=== PATIENT | male | born 1995 ===

== ENCOUNTER 2019-03-05 11:33 | Emergency (ER) | payer SELFPAY ==
[2019-03-05 11:52] VITALS: TEMP 97.8
[2019-03-05] MEDS ORDERED: Multivitamin (MVI) 10 ML, Thiamine 100 MG, Folic Acid 1 MG in Sodium Chloride 0.9% 1,00... IV ONE (11:58)
--- NOTE | 2019-03-05 12:42 | ED PDOC ---
Arrival/HPI - General Chief Complaint: Alcohol Ingestion Time Seen by Provider: 03/05/19 11:48 Historian: Patient - History of Present Illness Narrative History of Present Illness (Text): 03/05/19 12:40 23-year-old male with no significant past medical history presents to the emergency room for alcohol withdrawal, he reports of feeling shaky, headache, with nausea and vomiting. He states that he drinks once a week however for the past 2 days he has been drinking consistently, he drank a total of 15 beers, the last drink was yesterday. Otherwise he reports no chest pain, palpitations, shortness of breath, dizziness, fever, trauma, fall, abdominal pain, has no other complaints. Past Medical History - Psychiatric Hx Substance Use: No Family/Social History Family/Social History: No Known Family HX Smoking Status: Current Some Days Smoker Hx Alcohol Use: Yes Frequency of alcohol use: Few days per week Hx Substance Use: No Allergies/Home Meds Allergies/Adverse Reactions: Allergies No Known Allergies Allergy (Verified 03/05/19 11:51) Review of Systems - Review of Systems Constitutional: absent: Fatigue, Fevers Cardiovascular: absent: Chest Pain, Palpitations Gastrointestinal: Nausea. absent: Abdominal Pain, Vomiting Genitourinary Male: absent: Dysuria, Frequency, Hematuria Musculoskeletal: absent: Arthralgias, Back Pain, Neck Pain Skin: absent: Rash, Skin Lesions Neurological: Headache. absent: Dizziness Physical Exam Vital Signs Temp Pulse Resp BP Pulse Ox 03/05/19 11:52 97.8 F 87 17 139/85 99 Temperature: Afebrile Blood Pressure: Normal Pulse: Regular Respiratory Rate: Normal Appearance: Positive for: Well-Appearing, Non-Toxic, Comfortable Pain Distress: None Mental Status: Positive for: Alert and Oriented X 3 - Systems Exam Head: Present: Atraumatic, Normocephalic Pupils: Present: PERRL Extroacular Muscles: Present: EOMI Conjunctiva: Present: Normal Mouth: Present: Dry Neck: Present: Normal Range of Motion Respiratory/Chest: Present: Clear to Auscultation, Good Air Exchange. No: Respiratory Distress, Accessory Muscle Use Cardiovascular: Present: Regular Rate and Rhythm, Normal S1, S2. No: Murmurs Abdomen: No: Tenderness, Distention, Peritoneal Signs Back: Present: Normal Inspection Upper Extremity: Present: Normal Inspection. No: Cyanosis, Edema Lower Extremity: Present: Normal Inspection. No: Edema Neurological: Present: GCS=15, CN II-XII Intact, Speech Normal, Motor Func Grossly Intact, Normal Sensory Function, Gait Normal, Memory Normal, Other (+fine tremors noted to b/l hands) Skin: Present: Warm, Dry, Normal Color. No: Rashes Psychiatric: Present: Alert, Oriented x 3, Normal Insight, Normal Concentration Medical Decision Making ED Course and Treatment: 03/05/19 12:38 Plan : - IV - Labs - UA - Urine drug screen - Pepcid IV - Zofran IV - Ativan IV - Banana bag IV - Reassess / disposition 03/05/19 14:06 Labs reviewed and wnl. On reevaluation, patient reports improvement of symptoms, denies any headache, dizziness, palpitations, nausea, tremors. On exam, patient remains awake alert and oriented 3 in no acute distress, speaking in full sentences, no slurred speech, no tremors. Neck is supple, repeat neuro exam shows no focal findings, to ambulate with a steady gait. Advised to follow up with the clinic in 1-2 days without fail. Advised to take medication as prescribed. Return to the emergency room at any time for any new or worsening symptoms. Patient states he fully agrees with and understands discharge instructions. States that he agrees with the plan and disposition. Verbalized and repeated discharge instructions and plan. I have given the patient opportunity to ask any additional questions. - Medication Orders Current Medication Orders: Multivitamins/Vitamin C 10 ml/Thiamine HCl 100 mg/ Folic Acid 1 mg/ Sodium Chloride 1,011.2 mls @ 200 mls/hr IV .Q5H4M ONE Stop: 03/05/19 17:01 Discontinued Medications Famotidine (Pepcid) 20 mg IVP STAT STA Stop: 03/05/19 11:57 Last Admin: 03/05/19 12:16 Dose: 20 mg IVP Administration Document 03/05/19 12:16 EQ (Rec: 03/05/19 12:16 EQ [id number]) Charges for Administration # of IVP Administrations 1 Lorazepam (Ativan) 1 mg IVP ONCE ONE; Protocol Stop: 03/05/19 12:02 Last Admin: 03/05/19 12:15 Dose: 1 mg IVP Administration Document 03/05/19 12:15 EQ (Rec: 03/05/19 12:16 EQ [id number]) Charges for Administration # of IVP Administrations 1 Ondansetron HCl (Zofran Inj) 4 mg IVP STAT STA Stop: 03/05/19 11:57 Last Admin: 03/05/19 12:16 Dose: 4 mg IVP Administration Document 03/05/19 12:16 EQ (Rec: 03/05/19 12:16 EQ [id number]) Charges for Administration # of IVP Administrations 1 - PA / TRAIN PLANNER / Resident Statement MD/DO has reviewed & agrees with the documentation as recorded. Disposition/Present on Arrival - Present on Arrival Any Indicators Present on Arrival: No History of DVT/PE: No History of Uncontrolled Diabetes: No Urinary Catheter: No History of Decub. Ulcer: No History Surgical Site Infection Following: None - Disposition Have Diagnosis and Disposition been Completed?: Yes Diagnosis: Alcohol withdrawal Disposition: HOME/ ROUTINE Disposition Time: 14:15 Patient Plan: Discharge Condition: STABLE Discharge Instructions (ExitCare): Alcohol Withdrawal, Alcohol Abuse and Alcoholism (DC) Print Language: KOREAN Additional Instructions: Thank you for letting us take care of you today. You were treated for alcohol withdrawal. The emergency medical care you received today was directed at your acute symptoms. If you were prescribed any medication, please fill it and take as directed. It may take several days for your symptoms to resolve. Return to the Emergency Department if your symptoms worsen, do not improve, or if you have any other problems. Please call one of the physicians/clinics you have been referred to that are listed on the Patient Visit Information form that is included in your discharge packet. Bring any paperwork you were given at discharge with you along with any medications you are taking to your follow up visit. Our treatment cannot replace ongoing medical care by a primary care provider (PCP) outside of the emergency department. Thank you for allowing the [email or web address] team to be part of your care today. Prescriptions: chlordiazePOXIDE [Chlordiazepoxide HCl] 25 mg PO TID PRN #12 cap PRN Reason: Other Referrals: [facility] [place] - Follow up with primary Forms: needmade (Paraguayan), WORK NOTE
[2019-03-05 12:47] LABS: BASO # 0.04 K/mm3 (0.0-2.0); BASO % 0.4 % (0.0-3.0); EOS # 0.2 (0.0-0.7); EOS % 1.7 % (1.5-5.0); HEMOGLOBIN 15.5 g/dL (14.0-18.0); LYMPH # 2.1 (1.2-3.4); LYMPH % 22.8 % (22.0-35.0); MEAN CELL VOLUME 92.6 fl (80.0-105.0); MEAN CORPUSCULAR HEMOGLOBIN 31.9 pg (25.0-35.0); MEAN CORPUSCULAR HGB CONC 34.4 g/dl (31.0-37.0); MEAN PLATELET VOLUME 9.7 fl (7.0-11.0); MONO # 0.4 (0.1-0.6); MONO % 3.9 % (1.0-6.0); RBC 4.86 10^6/uL (3.5-6.1); RED CELL DISTRIBUTION WIDTH 12.6 % (11.5-14.5)
[2019-03-05 12:53] LABS: URINE BILIRUBIN NEGATIVE (NEGATIVE); URINE BLOOD NEGATIVE (NEGATIVE); URINE GLUCOSE (UA) NEGATIVE (NEGATIVE); URINE LEUKOCYTE ESTERASE NEGATIVE Leu/uL (NEGATIVE); URINE PROTEIN NEGATIVE mg/dL (<30 mg/dL); URINE UROBILINOGEN 0.2 E.U./dL (<1 E.U./dL)
[2019-03-05 12:54] LABS: INR 1.02; PARTIAL THROMBOPLASTIN TIME 30.8 Seconds (26.9-38.3); PROTHROMBIN TIME 11.5 SECONDS (9.4-12.5); URINE APPEARANCE CLEAR (CLEAR); URINE COLOR YELLOW (YELLOW)
[2019-03-05 12:57] LABS: ALB/GLOB RATIO 1.4 (1.1-1.8); ALBUMIN 4.7 g/dL (3.0-4.8); ALT/SGPT 39 U/L (7-56); AST/SGOT 44 U/L (17-59); BLOOD UREA NITROGEN 11 mg/dL (7-21); CALCIUM 9.1 mg/dL (8.4-10.5); GFR NON-AFRICAN AMERICAN > 60; LIPASE 53 U/L (23-300)
[2019-03-05 13:24] LABS: BARBITURATES, UR NEGATIVE (NEGATIVE); BENZODIAZEPINES, UR NEGATIVE (NEGATIVE); OPIATES, UR NEGATIVE (NEGATIVE); PHENCYCLIDINE, UR NEGATIVE (NEGATIVE)
[2019-03-05 15:52] VITALS: BP 128/86; PULSE 82; RESP 18; O2SAT 100
== END 2019-03-05 16:06 | disposition home or self-care (01) ==
LOC: ED 11:33
DX: F10.239 Alcohol dependence with withdrawal, unspecified (principal)
CPT/HCPCS: 80053; 81003; 83690; 83735; 85025; 85610; 85730; 96374; 96375; 99283; G0480; J2060; J2405; J3411; J7030

== ENCOUNTER 2019-04-21 18:02 | Observation (INO) | payer SELFPAY ==
[2019-04-21 18:45] VITALS: BMI 24.4
[2019-04-21] MEDS ORDERED: Sodium Chloride 0.9% 1,000 ML IV STA ×2 (18:56→20:11)
[2019-04-21 19:19] LABS: BASO # 0.02 K/mm3 (0.0-2.0); BASO % 0.2 % (0.0-3.0); EOS % 0.2 % (1.5-5.0); HEMOGLOBIN 15.8 g/dL (14.0-18.0); LYMPH % 20.6 % (22.0-35.0); MEAN CORPUSCULAR HEMOGLOBIN 31.5 pg (25.0-35.0); MEAN CORPUSCULAR HGB CONC 34.6 g/dl (31.0-37.0); MEAN PLATELET VOLUME 9.3 fl (7.0-11.0); MONO # 0.6 (0.1-0.6); MONO % 6.7 % (1.0-6.0); RBC 5.01 10^6/uL (3.5-6.1); RED CELL DISTRIBUTION WIDTH 12.8 % (11.5-14.5); WHITE BLOOD COUNT 9.6 10^3/uL (4.5-11.0)
[2019-04-21 19:30] LABS: ALB/GLOB RATIO 1.4 (1.1-1.8); ALBUMIN 4.7 g/dL (3.0-4.8); ALT/SGPT 62 U/L (7-56); AST/SGOT 87 U/L (17-59); BLOOD UREA NITROGEN 8 mg/dL (7-21); GFR NON-AFRICAN AMERICAN > 60; LIPASE 95 U/L (23-300)
--- NOTE | 2019-04-21 19:34 | ED PDOC ---
Arrival/HPI <Alvino Pulido - Last Filed: 04/21/19 22:56> - General Historian: Patient - History of Present Illness Narrative History of Present Illness (Text): 04/21/19 20:29 23 y/o male with PMH of alcohol abuse presents to the ED c/o headache, shakiness, lightheadedness and nausea x 1 day. Pt has been binge drinking alcohol for the last 4 days. Last drink 8am this morning. No history of alcohol related seizures. Denies fever, chills, vomiting, chest pain, SOB, abdominal pain, back pain, diarrhea, seizures, hallucinations, fall/trauma, or any other associated symptoms. <Iesha Krueger - Last Filed: 04/22/19 04:26> - General Chief Complaint: Substance Abuse Time Seen by Provider: 04/21/19 18:15 Past Medical History - Provider Review Nursing Documentation Reviewed: Yes Primary Care Provider: Non [facility] Provider, - Psychiatric Hx Substance Use: No <Iesha Krueger - Last Filed: 04/22/19 04:26> Family/Social History - Physician Review Nursing Documentation Reviewed: Yes Family/Social History: No Known Family HX Smoking Status: Current Some Days Smoker Hx Alcohol Use: Yes Frequency of alcohol use: Few days per week Hx Substance Use: No <Iesha Krueger - Last Filed: 04/22/19 04:26> Allergies/Home Meds <Alvino Pulido - Last Filed: 04/21/19 22:56> <Iesha Krueger - Last Filed: 04/22/19 04:26> Allergies/Adverse Reactions: Allergies No Known Allergies Allergy (Verified 04/21/19 18:50) Home Medications: Home Meds Medication Instructions Recorded Confirmed No Known Home Med 04/21/19 04/21/19 Review of Systems - Review of Systems Constitutional: Normal. absent: Fevers Eyes: Normal. absent: Vision Changes, Photophobia ENT: Normal. absent: Sore Throat, Epistaxis Respiratory: Normal. absent: SOB, Cough Cardiovascular: Normal. absent: Chest Pain, Palpitations, Syncope Gastrointestinal: Nausea. absent: Abdominal Pain, Stool Changes, Vomiting, Appetite Changes Genitourinary Male: Normal. absent: Dysuria, Frequency Musculoskeletal: Normal. absent: Back Pain, Neck Pain Skin: Normal. absent: Rash Neurological: Headache, Dizziness. absent: Focal Weakness, Gait Changes, Speech Changes, Disequilibrium, Seizure Psychiatric: Anxiety <Iesha Krueger - Last Filed: 04/22/19 04:26> Physical Exam Vital Signs Temp Pulse Resp BP Pulse Ox 04/21/19 22:03 102 H 13 158/97 H 100 04/21/19 18:45 98.7 F 110 H 20 135/84 97 <Alvino Pulido - Last Filed: 04/21/19 22:56> Vital Signs Reviewed: Yes Vital Signs Temp Pulse Resp BP Pulse Ox 04/21/19 18:45 98.7 F 110 H 20 135/84 97 Temperature: Afebrile Blood Pressure: Normal Pulse: Tachycardic Respiratory Rate: Normal Appearance: Positive for: Non-Toxic, Uncomfortable, Other (Diaphoretic) Pain Distress: None Mental Status: Positive for: Alert and Oriented X 3 - Systems Exam Head: Present: Atraumatic, Normocephalic Pupils: Present: PERRL Extroacular Muscles: Present: EOMI Conjunctiva: Present: Normal Mouth: Present: Dry Neck: Present: Normal Range of Motion. No: Meningeal Signs Respiratory/Chest: Present: Clear to Auscultation, Good Air Exchange. No: Respiratory Distress, Accessory Muscle Use Cardiovascular: Present: Normal S1, S2, Peripheal Pulses Present, Tachycardic Abdomen: Present: Normal Bowel Sounds. No: Tenderness Back: Present: Normal Inspection. No: CVA Tenderness Upper Extremity: Present: Normal Inspection, Normal ROM, NORMAL PULSES, Neurovascularly Intact, Capillary Refill < 2s. No: Cyanosis, Edema, Temperature Abnormalties Lower Extremity: Present: Normal Inspection, NORMAL PULSES, Normal ROM, Neurovascularly Intact, Capillary Refill < 2 s. No: Edema, Temperature Abnormalties Neurological: Present: GCS=15, Speech Normal, Motor Func Grossly Intact, Normal Sensory Function, Gait Normal, Other (Tremors to bilateral hands, mild) Skin: Present: Warm, Dry, Normal Color. No: Rashes Psychiatric: Present: Alert, Oriented x 3, Normal Insight, Normal Concentration, Anxious <Iesha Krueger - Last Filed: 04/22/19 04:26> Medical Decision Making - Lab Interpretations Lab Results: Total Bilirubin 0.3 mg/dL (0.2-1.3) 04/21/19 19:10 AST 87 U/L (17-59) H D 04/21/19 19:10 ALT 62 U/L (7-56) H 04/21/19 19:10 Alkaline Phosphatase 71 U/L (38-126) 04/21/19 19:10 Total Protein 7.9 g/dL (5.8-8.3) 04/21/19 19:10 Albumin 4.7 g/dL (3.0-4.8) 04/21/19 19:10 Globulin 3.2 gm/dL 04/21/19 19:10 Albumin/Globulin Ratio 1.4 (1.1-1.8) 04/21/19 19:10 Lipase 95 U/L (23-300) 04/21/19 19:10 Urine Color Colorless (YELLOW) 04/21/19 19:41 Urine Appearance Clear (CLEAR) 04/21/19 19:41 Urine pH 7.0 (4.7-8.0) 04/21/19 19:41 Ur Specific [place] <= 1.005 (1.005-1.035) 04/21/19 19:41 Urine Protein Negative mg/dL (<30 mg/dL) 04/21/19 19:41 Urine Glucose (UA) Negative mg/dL (NEGATIVE) 04/21/19 19:41 Urine Ketones Negative mg/dL (NEGATIVE) 04/21/19 19:41 Urine Blood Negative (NEGATIVE) 04/21/19 19:41 Urine Nitrate Negative (NEGATIVE) 04/21/19 19:41 Urine Bilirubin Negative (NEGATIVE) 04/21/19 19:41 Urine Urobilinogen 0.2 E.U./dL (<1 E.U./dL) 04/21/19 19:41 Ur Leukocyte Esterase Negative Aurelia/uL (NEGATIVE) 04/21/19 19:41 - RAD Interpretation Radiology Orders: 04/21/19 18:49 CHEST PORTABLE [RAD] Stat - Medication Orders Current Medication Orders: Folic Acid (Folic Acid) 1 mg PO DAILY SHALOM Multivitamins/Vitamin C 10 ml/Thiamine HCl 100 mg/ Folic Acid 1 mg/ Sodium Chloride 1,011.2 mls @ 100 mls/hr IV .Q10H7M ONE Stop: 04/22/19 06:29 Last Admin: 04/21/19 20:58 Dose: 100 mls/hr eMAR Start Stop Document 04/21/19 20:58 EB (Rec: 04/21/19 20:59 EB [id number]) Intravenous Solution Start Date 04/21/19 Start Time 20:58 Lorazepam (Ativan) 2 mg IVP Q6H SHALOM; Protocol Lorazepam (Ativan) 2 mg IVP Q2 PRN; Protocol PRN Reason: Symptoms of alcohol withdrawl Multivitamins/Minerals (Therapeutic-M Tab) 1 tab PO 0800 SHALOM Ondansetron HCl (Zofran Inj) 4 mg IVP Q4H PRN PRN Reason: Nausea/Vomiting Pantoprazole Sodium (Protonix Ec Tab) 40 mg PO 0600 SHALOM Thiamine HCl (Vitamin B1 Tab) 100 mg PO DAILY SHALOM Discontinued Medications Sodium Chloride (Sodium Chloride 0.9%) 1,000 mls @ 999 mls/hr IV .Q1H1M STA Stop: 04/21/19 19:56 Last Admin: 04/21/19 19:22 Dose: 999 mls/hr eMAR Start Stop Document 04/21/19 19:22 SS (Rec: 04/21/19 19:22 SS [id number]) Intravenous Solution Start Date 04/21/19 Start Time 19:22 End Date 04/21/19 End time 20:22 Total Infusion Time 60 Magnesium Sulfate (Magnesium Sulfate 2 Gm/50 Ml Water) 2 gm in 50 mls @ 50 mls/hr IVPB ONCE ONE Stop: 04/21/19 20:34 Last Admin: 04/21/19 20:03 Dose: 50 mls/hr eMAR Start Stop Document 04/21/19 20:03 EB (Rec: 04/21/19 20:04 EB [facility]-) Intravenous Solution Start Date 04/21/19 Start Time 20:03 Lorazepam (Ativan) 1 mg IVP ONCE ONE Stop: 04/21/19 18:50 Last Admin: 04/21/19 19:22 Dose: 1 mg IVP Administration Document 04/21/19 19:22 SS (Rec: 04/21/19 19:23 SS [id number]) Charges for Administration # of IVP Administrations 1 Lorazepam (Ativan) 1 mg IVP ONCE ONE; Protocol Stop: 04/21/19 19:33 Last Admin: 05/24/19 20:03 Dose: 1 mg IVP Administration Document 04/21/19 20:03 EB (Rec: 04/21/19 20:03 EB [facility] Charges for Administration # of IVP Administrations 1 Thiamine HCl (Vitamin B1 Inj) 100 mg IM STAT STA Stop: 04/21/19 20:06 Last Admin: 04/21/19 21:09 Dose: 100 mg IM Administration Charges Document 04/21/19 21:09 EB (Rec: 04/21/19 21:09 EB [facility]) Injection Site MAR Injection Site Left Deltoid Charges for Administration # of IM Administrations 1 <AshokAlvino - Last Filed: 04/21/19 22:56> ED Course and Treatment: Initial Plan: * Labs * UA, UDS * EKG * CXR * IVF * Ativan 20:00 [facility] for Alcohol Withdrawal RESULT SUMMARY: 10 points Patients with scores >9 may require medication for withdrawal INPUTS: Nausea/vomiting > 1 = Mild nausea and no vomiting Tremor > 2 = (More severe symptoms) Paroxysmal sweats > 4 = Beads of sweat obvious on forehead Anxiety > 1 = Mildly anxious Agitation > 0 = Normal activity Tactile disturbances > 0 = None Auditory disturbances > 0 = Not present Visual disturbances > 0 = Not present Headache/fullness in head > 2 = Mild Orientation/clouding of sensorium > 0 = Oriented, can do serial additions 20:13 On re-evaluation, patient reports improvement in symptoms. Continues to be tachycardic. Bloodwork reviewed. Mg low, LFTs mildly elevated, otherwise unremarkable. Another 1mg Ativan ordered for continued tremors. Magnesium and thiamine ordered. Another liter of fluid ordered. 20:[address] Benton who accepted patient for inpatient observation on telemetry with diagnosis of alcohol withdrawal. Pt continues to be tachycardic. Banana bag ordered per admitting team. Pt updated with change in disposition. vice president diversity notified. - Lab Interpretations Lab Results: Total Bilirubin 0.3 mg/dL (0.2-1.3) 04/21/19 19:10 AST 87 U/L (17-59) H D 04/21/19 19:10 ALT 62 U/L (7-56) H 04/21/19 19:10 Alkaline Phosphatase 71 U/L (38-126) 04/21/19 19:10 Total Protein 7.9 g/dL (5.8-8.3) 04/21/19 19:10 Albumin 4.7 g/dL (3.0-4.8) 04/21/19 19:10 Globulin 3.2 gm/dL 04/21/19 19:10 Albumin/Globulin Ratio 1.4 (1.1-1.8) 04/21/19 19:10 Lipase 95 U/L (23-300) 04/21/19 19:10 04/21/19 19:10 04/21/19 19:10 Lab Results 04/21/19 19:41: Urine Color Colorless, Urine Appearance Clear, Urine pH 7.0, Ur Specific [place] <= 1.005, Urine Protein Negative, Urine Glucose (UA) Negative, Urine Ketones Negative, Urine Blood Negative, Urine Nitrate Negative, Urine Bilirubin Negative, Urine Urobilinogen 0.2, Ur Leukocyte Esterase Negative 04/21/19 19:15: Alcohol, Quantitative 65 H 04/21/19 19:10: Sodium 139, Potassium 4.2, Chloride 102, Carbon Dioxide 23, Anion Gap 18, BUN 8, Creatinine 0.9, Est GFR ( Amer) > 60, Est GFR (Non- Af Amer) > 60, Random Glucose 109, Calcium 9.0, Phosphorus 3.5, Magnesium 1.6 L, Total Bilirubin 0.3, AST 87 H D, ALT 62 H, Alkaline Phosphatase 71, Total Protein 7.9, Albumin 4.7, Globulin 3.2, Albumin/Globulin Ratio 1.4, Lipase 95 04/21/19 19:10: WBC 9.6, RBC 5.01, Hgb 15.8, Hct 45.6, MCV 91.0, MCH 31.5, MCHC 34.6, RDW 12.8, Plt Count 293, MPV 9.3, Neut % (Auto) 72.3 H, Lymph % (Auto) 20.6 L, Rogers % (Auto) 6.7 H, Eos % (Auto) 0.2 L, Baso % (Auto) 0.2, Lymph # (Auto) 2.0, Rogers # (Auto) 0.6, Eos # (Auto) 0.0, Baso # (Auto) 0.02, Absolute Neuts (auto) 6.95 H I have reviewed the lab results: Yes - RAD Interpretation Radiology Orders: 04/21/19 18:49 CHEST PORTABLE [RAD] Stat - EKG Interpretation EKG Interpretation (Text): Rate 107; Sinus tachycardia; Normal axis; Normal intervals; No STEMI or other signs of acute ischemia. Interpreted by ED Physician: Yes Type: 12 lead EKG - Medication Orders Current Medication Orders: Sodium Chloride (Sodium Chloride 0.9%) 1,000 mls @ 999 mls/hr IV .Q1H1M STA Stop: 04/21/19 19:56 Last Admin: 04/21/19 19:22 Dose: 999 mls/hr eMAR Start Stop Document 04/21/19 19:22 SS (Rec: 04/21/19 19:22 SS [id number]) Intravenous Solution Start Date 04/21/19 Start Time 19:22 End Date 04/21/19 End time 20:22 Total Infusion Time 60 Lorazepam (Ativan) 1 mg IVP ONCE ONE; Protocol Stop: 04/21/19 19:33 Discontinued Medications Lorazepam (Ativan) 1 mg IVP ONCE ONE Stop: 04/21/19 18:50 Last Admin: 04/21/19 19:22 Dose: 1 mg IVP Administration Document 04/21/19 19:22 SS (Rec: 04/21/19 19:23 SS [id number]) Charges for Administration # of IVP Administrations 1 <Iesha Krueger - Last Filed: 04/22/19 04:26> - PA / TRUCK SPOTTER / Resident Statement JACOB has reviewed & agrees with the documentation as recorded. / has examined the patient and agrees with the treatment plan. <Alvino Pulido - Last Filed: 04/21/19 22:56> Disposition/Present on Arrival <Alvino Pulido - Last Filed: 04/21/19 22:56> - Present on Arrival Any Indicators Present on Arrival: No History of DVT/PE: No History of Uncontrolled Diabetes: No Urinary Catheter: No History of Decub. Ulcer: No History Surgical Site Infection Following: None - Disposition Have Diagnosis and Disposition been Completed?: Yes Disposition Time: 20:15 <Iesha Krueger - Last Filed: 04/22/19 04:26> - Disposition Diagnosis: Alcohol withdrawal Disposition: HOSPITALIZED Patient Problems: Current Active Problems Problem Status Onset Alcohol withdrawal Acute Condition: STABLE
[2019-04-21] MEDS ORDERED: Magnesium Sulfate 2 gm/50 ml 2 GM/50 ML BAG IVPB ONE (19:35)
[2019-04-21 19:56] LABS: URINE BILIRUBIN NEGATIVE (NEGATIVE); URINE BLOOD NEGATIVE (NEGATIVE); URINE GLUCOSE (UA) NEGATIVE (NEGATIVE); URINE LEUKOCYTE ESTERASE NEGATIVE Leu/uL (NEGATIVE); URINE PROTEIN NEGATIVE mg/dL (<30 mg/dL); URINE UROBILINOGEN 0.2 E.U./dL (<1 E.U./dL)
[2019-04-21 19:59] LABS: URINE APPEARANCE CLEAR (CLEAR); URINE COLOR COLORLESS (YELLOW)
[2019-04-21] MEDS ORDERED: Thiamine 100 mg/ml Inj IM STA (20:05)
[2019-04-21 20:10] LABS: BARBITURATES, UR NEGATIVE (NEGATIVE); BENZODIAZEPINES, UR NEGATIVE (NEGATIVE); OPIATES, UR NEGATIVE (NEGATIVE); PHENCYCLIDINE, UR NEGATIVE (NEGATIVE)
[2019-04-21] MEDS ORDERED: Multivitamin (MVI) 10 ML, Thiamine 100 MG, Folic Acid 1 MG in Sodium Chloride 0.9% 1,00... IV ONE (20:23)
--- NOTE | 2019-04-21 20:55 | CP.PCM.HP ---
<Quincy Adhikari - Last Filed: 04/22/19 01:53> History of Present Illness - History of Present Illness History of Present Illness: Quincy Adhikari H&P for Dr. Benton cc: "headache, shaking, lightheadedness, nausea s/p binge drinking" Patient is a 23 y/o male with PMHx of alcohol abuse presents to the ED c/o headache, shaking, lightheadedness and nausea x 1 day duration after binge drinking. He has been consistently drinking alcohol for the last 4 days. Patient says he last drank at 8am in the morning. He typically drinks 15 beers a day. He says that after drinking he will usually get shakes and have some visual or auditory hallucinations. He denies any history of seizures. Currently he denies fever, chills, vomiting, chest pain, SOB, abdominal pain, back pain, diarrhea, seizures, visual/auditory/tactile hallucinations. Previous admission to ED was on 03/05/19 for similar presentation. A full 12 point ROS was conducted and unremarkable except as stated above. PMD: none PMHx: alcohol abuse PSHx: none Meds: none Allergies: NKDA FamHx: non-contributory SocialHx: active smoker (2-3 cigarettes x2 years). Alcohol abuse, 15 beers/day. Denies illicit drug use. Present on Admission - Present on Admission Any Indicators Present on Admission: No Review of Systems - Review of Systems All systems: reviewed and no additional remarkable complaints except (as per HPI) Past Patient History - Past Social History Smoking Status: Current Some Days Smoker - PSYCHIATRIC Hx Substance Use: No - SURGICAL HISTORY Hx Surgeries: No Meds Allergies/Adverse Reactions: Allergies Allergy/AdvReac Type Severity Reaction Status Date / Time No Known Allergies Allergy Verified 04/21/19 18:50 Physical Exam - Constitutional Appears: No Acute Distress - Head Exam Head Exam: ATRAUMATIC, NORMAL INSPECTION, NORMOCEPHALIC - Eye Exam Eye Exam: EOMI, Normal appearance Pupil Exam: NORMAL ACCOMODATION - ENT Exam ENT Exam: Mucous Membranes Moist Additional comments: Mild tongue fasiculations - Respiratory Exam Respiratory Exam: Clear to Auscultation Bilateral. absent: Chest Wall Tenderness, Rales, Rhonchi, Wheezes, Respiratory Distress - Cardiovascular Exam Cardiovascular Exam: Tachycardia, +S1, +S2 - GI/Abdominal Exam GI & Abdominal Exam: Normal Bowel Sounds, Soft. absent: Guarding, Rebound, Rigid, Tenderness - Extremities Exam Extremities exam: Positive for: normal capillary refill, normal inspection, pedal pulses present - Back Exam Back exam: NORMAL INSPECTION - Neurological Exam Neurological exam: Alert, CN II-XII Intact, Oriented x3, Reflexes Normal - Psychiatric Exam Psychiatric exam: Normal Affect, Normal Mood - Skin Skin Exam: Dry, Intact, Normal Color, Warm Results - Vital Signs Recent Vital Signs: Last Vital Signs Temp 98.7 F 04/21/19 18:45 Pulse 110 H 04/21/19 18:45 Resp 20 04/21/19 18:45 BP 135/84 04/21/19 18:45 Pulse Ox 97 04/21/19 18:45 - Labs Result Diagrams: 04/21/19 19:10 04/21/19 19:10 Labs: Laboratory Results - last 24 hr 04/21/19 04/21/19 04/21/19 19:10 19:10 19:15 WBC 9.6 RBC 5.01 Hgb 15.8 Hct 45.6 MCV 91.0 MCH 31.5 MCHC 34.6 RDW 12.8 Plt Count 293 MPV 9.3 Neut % (Auto) 72.3 H Lymph % (Auto) 20.6 L [place] % (Auto) 6.7 H Eos % (Auto) 0.2 L Baso % (Auto) 0.2 Lymph # (Auto) 2.0 [place] # (Auto) 0.6 Eos # (Auto) 0.0 Baso # (Auto) 0.02 Absolute Neuts (auto) 6.95 H Sodium 139 Potassium 4.2 Chloride 102 Carbon Dioxide 23 Anion Gap 18 BUN 8 Creatinine 0.9 Est GFR ( Amer) > 60 Est GFR (Non-Af Amer) > 60 Random Glucose 109 Calcium 9.0 Phosphorus 3.5 Magnesium 1.6 L Total Bilirubin 0.3 AST 87 H D ALT 62 H Alkaline Phosphatase 71 Total Protein 7.9 Albumin 4.7 Globulin 3.2 Albumin/Globulin Ratio 1.4 Lipase 95 Urine Color Urine Appearance Urine pH Ur Specific [place] Urine Protein Urine Glucose (UA) Urine Ketones Urine Blood Urine Nitrate Urine Bilirubin Urine Urobilinogen Ur Leukocyte Esterase Urine Opiates Screen Urine Methadone Screen Ur Barbiturates Screen Ur Phencyclidine Scrn Ur Amphetamines Screen U Benzodiazepines Scrn U Oth Cocaine Metabols U Cannabinoids Screen Alcohol, Quantitative 65 H 04/21/19 04/21/19 19:41 19:41 WBC RBC Hgb Hct MCV MCH MCHC RDW Plt Count MPV Neut % (Auto) Lymph % (Auto) [place] % (Auto) Eos % (Auto) Baso % (Auto) Lymph # (Auto) [place] # (Auto) Eos # (Auto) Baso # (Auto) Absolute Neuts (auto) Sodium Potassium Chloride Carbon Dioxide Anion Gap BUN Creatinine Est GFR ( Amer) Est GFR (Non-Af Amer) Random Glucose Calcium Phosphorus Magnesium Total Bilirubin AST ALT Alkaline Phosphatase Total Protein Albumin Globulin Albumin/Globulin Ratio Lipase Urine Color Colorless Urine Appearance Clear Urine pH 7.0 Ur Specific [place] <= 1.005 Urine Protein Negative Urine Glucose (UA) Negative Urine Ketones Negative Urine Blood Negative Urine Nitrate Negative Urine Bilirubin Negative Urine Urobilinogen 0.2 Ur Leukocyte Esterase Negative Urine Opiates Screen Negative Urine Methadone Screen Negative Ur Barbiturates Screen Negative Ur Phencyclidine Scrn Negative Ur Amphetamines Screen Negative U Benzodiazepines Scrn Negative U Oth Cocaine Metabols Negative U Cannabinoids Screen Negative Alcohol, Quantitative Assessment & Plan - Assessment and Plan (Free Text) Assessment: Patient is a 23 y/o male with PMHx of alcohol abuse presents to the ED c/o headache, shaking, lightheadedness and nausea x 1 day duration after binge drinking. Plan: EtOH Intoxication/Withdrawal - EtOH level 65 - [facility] protocol - Banana bag - Ativan 2mg IVP q6 scheduled - Ativan 2mg IVP q2 prn - Zofran prn for nausea - Multivitamin/folic acid/thiamine - seizure/fall/aspiration precautions - UDS negative - Transaminitis 2/2 EtOH abuse - EKG: sinus tachy, HR 107 - CXR: no active disease - CIWA score 10 in ED - Counseled extensively on alcohol cessation ppx: -scd -ptx Diet: Regular Dispo: Monitor patient on tele for EtOH withdrawal. Case was discussed and reviewed with Attending Physician, Dr. Benton <Mell Benton - Last Filed: 04/22/19 02:01> Results - Vital Signs Recent Vital Signs: Last Vital Signs Temp 98.2 F 04/22/19 00:00 Pulse 98 H 04/22/19 00:00 Resp 18 04/22/19 00:00 BP 137/82 04/22/19 00:00 Pulse Ox 99 04/22/19 00:00 - Labs Result Diagrams: 04/21/19 19:10 04/21/19 19:10 Labs: Laboratory Results - last 24 hr 04/21/19 04/21/19 04/21/19 19:10 19:10 19:15 WBC 9.6 RBC 5.01 Hgb 15.8 Hct 45.6 MCV 91.0 MCH 31.5 MCHC 34.6 RDW 12.8 Plt Count 293 MPV 9.3 Neut % (Auto) 72.3 H Lymph % (Auto) 20.6 L [place] % (Auto) 6.7 H Eos % (Auto) 0.2 L Baso % (Auto) 0.2 Lymph # (Auto) 2.0 [place] # (Auto) 0.6 Eos # (Auto) 0.0 Baso # (Auto) 0.02 Absolute Neuts (auto) 6.95 H Sodium 139 Potassium 4.2 Chloride 102 Carbon Dioxide 23 Anion Gap 18 BUN 8 Creatinine 0.9 Est GFR ( Amer) > 60 Est GFR (Non-Af Amer) > 60 Random Glucose 109 Calcium 9.0 Phosphorus 3.5 Magnesium 1.6 L Total Bilirubin 0.3 AST 87 H D ALT 62 H Alkaline Phosphatase 71 Total Protein 7.9 Albumin 4.7 Globulin 3.2 Albumin/Globulin Ratio 1.4 Lipase 95 Urine Color Urine Appearance Urine pH Ur Specific [place] Urine Protein Urine Glucose (UA) Urine Ketones Urine Blood Urine Nitrate Urine Bilirubin Urine Urobilinogen Ur Leukocyte Esterase Urine Opiates Screen Urine Methadone Screen Ur Barbiturates Screen Ur Phencyclidine Scrn Ur Amphetamines Screen U Benzodiazepines Scrn U Oth Cocaine Metabols U Cannabinoids Screen Alcohol, Quantitative 65 H 04/21/19 04/21/19 19:41 19:41 WBC RBC Hgb Hct MCV MCH MCHC RDW Plt Count MPV Neut % (Auto) Lymph % (Auto) [place] % (Auto) Eos % (Auto) Baso % (Auto) Lymph # (Auto) [place] # (Auto) Eos # (Auto) Baso # (Auto) Absolute Neuts (auto) Sodium Potassium Chloride Carbon Dioxide Anion Gap BUN Creatinine Est GFR ( Amer) Est GFR (Non-Af Amer) Random Glucose Calcium Phosphorus Magnesium Total Bilirubin AST ALT Alkaline Phosphatase Total Protein Albumin Globulin Albumin/Globulin Ratio Lipase Urine Color Colorless Urine Appearance Clear Urine pH 7.0 Ur Specific [place] <= 1.005 Urine Protein Negative Urine Glucose (UA) Negative Urine Ketones Negative Urine Blood Negative Urine Nitrate Negative Urine Bilirubin Negative Urine Urobilinogen 0.2 Ur Leukocyte Esterase Negative Urine Opiates Screen Negative Urine Methadone Screen Negative Ur Barbiturates Screen Negative Ur Phencyclidine Scrn Negative Ur Amphetamines Screen Negative U Benzodiazepines Scrn Negative U Oth Cocaine Metabols Negative U Cannabinoids Screen Negative Alcohol, Quantitative Attending/Attestation - Attestation I have personally seen and examined this patient.: Yes I have fully participated in the care of the patient.: Yes I have reviewed all pertinent clinical information: Yes Notes (Text): 04/22/19 02:01 Patient was seen when he was in bed # 268-02. Medical record was reviewed. Agree with history, physical examination, assessment and plan.
[2019-04-22] MEDS: Pantoprazole 40 mg EC Tab PO SCH (07:07)
[2019-04-22 07:25] LABS: HEMOGLOBIN 14.5 g/dL (14.0-18.0); MEAN CELL VOLUME 92.8 fl (80.0-105.0); MEAN CORPUSCULAR HEMOGLOBIN 31.8 pg (25.0-35.0); MEAN CORPUSCULAR HGB CONC 34.3 g/dl (31.0-37.0); MEAN PLATELET VOLUME 9.9 fl (7.0-11.0); RBC 4.56 10^6/uL (3.5-6.1); RED CELL DISTRIBUTION WIDTH 12.9 % (11.5-14.5)
[2019-04-22 07:47] LABS: ALT/SGPT 53 U/L (7-56)
[2019-04-22 07:59] LABS: ALB/GLOB RATIO 1.4 (1.1-1.8); ALBUMIN 3.8 g/dL (3.0-4.8); AST/SGOT 55 U/L (17-59); BLOOD UREA NITROGEN 10 mg/dL (7-21); CALCIUM 8.3 mg/dL (8.4-10.5); GFR NON-AFRICAN AMERICAN > 60
[2019-04-22] MEDS: Multivitamin With Minerals Tab PO SCH (09:10)
--- NOTE | 2019-04-22 10:36 | RAD ---
Date of service: 04/21/2019 HISTORY: alcohol withdrawal COMPARISON: No prior. TECHNIQUE: 1 view obtained. FINDINGS: LUNGS: Tiny 4 mm nodular density in the peripheral left midlung which may represent calcified granuloma.. PLEURA: No significant pleural effusion identified, no pneumothorax apparent. CARDIOVASCULAR: No aortic atherosclerotic calcification present. Normal cardiac size. No pulmonary vascular congestion. OSSEOUS STRUCTURES: No significant abnormalities. VISUALIZED UPPER ABDOMEN: Normal. OTHER FINDINGS: None. IMPRESSION: No active disease. Calcified granulomas.
--- NOTE | 2019-04-22 11:53 | CARD ---
APPROVED REPORT Date of service: 04/21/2019 EKG Measurement Heart [id number] <Conclusion> Poor data quality, interpretation may be adversely affected Sinus tachycardia Otherwise normal ECG
[2019-04-23 02:41] VITALS: O2SAT 98
[2019-04-23] MEDS: Pantoprazole 40 mg EC Tab PO SCH (06:09)
[2019-04-23 06:57] VITALS: BP 119/76; PULSE 68; RESP 18; TEMP 97.5
[2019-04-23 07:26] LABS: ALB/GLOB RATIO 1.4 (1.1-1.8); ALBUMIN 4.3 g/dL (3.0-4.8); ALT/SGPT 46 U/L (7-56); AST/SGOT 54 U/L (17-59); BLOOD UREA NITROGEN 12 mg/dL (7-21); CALCIUM 9.2 mg/dL (8.4-10.5); GFR NON-AFRICAN AMERICAN > 60
[2019-04-23 07:42] LABS: HEMOGLOBIN 15.8 g/dL (14.0-18.0); MEAN CELL VOLUME 92.4 fl (80.0-105.0); MEAN CORPUSCULAR HEMOGLOBIN 31.5 pg (25.0-35.0); MEAN CORPUSCULAR HGB CONC 34.1 g/dl (31.0-37.0); RBC 5.01 10^6/uL (3.5-6.1); RED CELL DISTRIBUTION WIDTH 12.7 % (11.5-14.5); WHITE BLOOD COUNT 6.6 10^3/uL (4.5-11.0)
[2019-04-23] MEDS: Multivitamin With Minerals Tab PO SCH (08:35)
--- NOTE | 2019-04-23 11:29 | CP.PCM.DIS ---
<Joe Rodriguez - Last Filed: 04/23/19 11:22> Provider - Provider Date of Admission: 04/21/19 20:28 Attending physician: Chikis Triana MD Time Spent in preparation of Discharge (in minutes): 35 Hospital Course - Lab Results Lab Results: Most Recent Lab Values WBC 6.6 10^3/uL (4.5-11.0) 04/23/19 06:30 RBC 5.01 10^6/uL (3.5-6.1) 04/23/19 06:30 Hgb 15.8 g/dL (14.0-18.0) 04/23/19 06:30 Hct 46.3 % (42.0-52.0) 04/23/19 06:30 MCV 92.4 fl (80.0-105.0) 04/23/19 06:30 MCH 31.5 pg (25.0-35.0) 04/23/19 06:30 MCHC 34.1 g/dl (31.0-37.0) 04/23/19 06:30 RDW 12.7 % (11.5-14.5) 04/23/19 06:30 Plt Count 271 10^3/uL (120.0-450.0) 04/23/19 06:30 MPV 10.0 fl (7.0-11.0) 04/23/19 06:30 Neut % (Auto) 72.3 % (50.0-68.0) H 04/21/19 19:10 Lymph % (Auto) 20.6 % (22.0-35.0) L 04/21/19 19:10 [place] % (Auto) 6.7 % (1.0-6.0) H 04/21/19 19:10 Eos % (Auto) 0.2 % (1.5-5.0) L 04/21/19 19:10 Baso % (Auto) 0.2 % (0.0-3.0) 04/21/19 19:10 Lymph # (Auto) 2.0 (1.2-3.4) 04/21/19 19:10 [place] # (Auto) 0.6 (0.1-0.6) 04/21/19 19:10 Eos # (Auto) 0.0 (0.0-0.7) 04/21/19 19:10 Baso # (Auto) 0.02 K/mm3 (0.0-2.0) 04/21/19 19:10 Absolute Neuts (auto) 6.95 (1.4-6.5) H 04/21/19 19:10 Sodium 136 mmol/L (132-148) 04/23/19 06:30 Potassium 4.0 mmol/L (3.6-5.0) 04/23/19 06:30 Chloride 102 mmol/L (98-107) 04/23/19 06:30 Carbon Dioxide 26 mmol/L (21-33) 04/23/19 06:30 Anion Gap 12 (10-20) 04/23/19 06:30 BUN 12 mg/dL (7-21) 04/23/19 06:30 Creatinine 0.9 mg/dl (0.8-1.5) 04/23/19 06:30 Est GFR ( Amer) > 60 04/23/19 06:30 Est GFR (Non-Af Amer) > 60 04/23/19 06:30 Random Glucose 93 mg/dL (70-110) 04/23/19 06:30 Calcium 9.2 mg/dL (8.4-10.5) 04/23/19 06:30 Phosphorus 3.9 mg/dL (2.5-4.5) 04/23/19 06:30 Magnesium 2.1 mg/dL (1.7-2.2) 04/23/19 06:30 Total Bilirubin 1.0 mg/dL (0.2-1.3) 04/23/19 06:30 AST 54 U/L (17-59) 04/23/19 06:30 ALT 46 U/L (7-56) 04/23/19 06:30 Alkaline Phosphatase 66 U/L (38-126) 04/23/19 06:30 Total Protein 7.4 g/dL (5.8-8.3) 04/23/19 06:30 Albumin 4.3 g/dL (3.0-4.8) 04/23/19 06:30 Globulin 3.0 gm/dL 04/23/19 06:30 Albumin/Globulin Ratio 1.4 (1.1-1.8) 04/23/19 06:30 Lipase 95 U/L (23-300) 04/21/19 19:10 Urine Color Colorless (YELLOW) 04/21/19 19:41 Urine Appearance Clear (CLEAR) 04/21/19 19:41 Urine pH 7.0 (4.7-8.0) 04/21/19 19:41 Ur Specific [place] <= 1.005 (1.005-1.035) 04/21/19 19:41 Urine Protein Negative mg/dL (<30 mg/dL) 04/21/19 19:41 Urine Glucose (UA) Negative mg/dL (NEGATIVE) 04/21/19 19:41 Urine Ketones Negative mg/dL (NEGATIVE) 04/21/19 19:41 Urine Blood Negative (NEGATIVE) 04/21/19 19:41 Urine Nitrate Negative (NEGATIVE) 04/21/19 19:41 Urine Bilirubin Negative (NEGATIVE) 04/21/19 19:41 Urine Urobilinogen 0.2 E.U./dL (<1 E.U./dL) 04/21/19 19:41 Ur Leukocyte Esterase Negative [place]/uL (NEGATIVE) 04/21/19 19:41 Urine Opiates Screen Negative (NEGATIVE) 04/21/19 19:41 Urine Methadone Screen Negative (NEGATIVE) 04/21/19 19:41 Ur Barbiturates Screen Negative (NEGATIVE) 04/21/19 19:41 Ur Phencyclidine Scrn Negative (NEGATIVE) 04/21/19 19:41 Ur Amphetamines Screen Negative (NEGATIVE) 04/21/19 19:41 U Benzodiazepines Scrn Negative (NEGATIVE) 04/21/19 19:41 U Oth Cocaine Metabols Negative (NEGATIVE) 04/21/19 19:41 U Cannabinoids Screen Negative (NEGATIVE) 04/21/19 19:41 Alcohol, Quantitative 65 mg/dL (0-10) H 04/21/19 19:15 Physical Exam - Constitutional Appears: No Acute Distress - Head Exam Head Exam: ATRAUMATIC, NORMAL INSPECTION, NORMOCEPHALIC - Eye Exam Eye Exam: EOMI, Normal appearance Pupil Exam: NORMAL ACCOMODATION - ENT Exam ENT Exam: Mucous Membranes Moist Additional comments: - Respiratory Exam Respiratory Exam: Clear to Auscultation Bilateral. absent: Chest Wall Tenderness, Wheezes, Respiratory Distress - Cardiovascular Exam Cardiovascular Exam: +S1, +S2 absent: tachycardia - GI/Abdominal Exam GI & Abdominal Exam: Normal Bowel Sounds, Soft. absent: Guarding, Rebound, Rigid, Tenderness - Extremities Exam Extremities exam: Positive for: normal capillary refill, normal inspection, pedal pulses present. Calf tenderness absent - Back Exam Back exam: NORMAL INSPECTION - Neurological Exam Neurological exam: Alert, CN II-XII Intact, Oriented x3. No tremors appreciated - Skin Skin Exam: Intact, Normal Color, Warm - Hospital Course Hospital Course: Upon admission, 23 year old male with PMH of alcohol abuse presents to the ED c/o headache, shaking, lightheadedness and nausea x 1 day duration after binge drinking. He has been consistently drinking alcohol for the last 4 days. Patient says he last drank at 8am in the morning. He typically drinks 15 beers a day. He says that after drinking he will usually get shakes and have some visual or auditory hallucinations. He denies any history of seizures. Previous admission to ED was on 03/05/19 for similar presentation. During hospital course, patient was admitted for alchohol intoxication with alcohol level of 65 and started on CIWA protocol, banana bag, ativan 2mg q6 pedro and q2 prn, zofran for nausea and aspiration, fall and seizure precautions. Patient's initial CIWA was 10 and dowtrended throughout hospital course. CXR did not show any active disease. Today, CIWA score is 1 and patient has not needed prn ativan over the last day. Patient is resting comfortable in no acute distress with stable vital signs and no indications for alcohol withdrawel including tremors and diaphoresis. Patient agrees to call the provided number for [facility] clinic to establish primary care. Patient given scripts for medications at bedside including librium which patient agrees to take as prescribed. Patient agrees with discharge today and all of his question's were answered to satisfaction. Discharge Plan - Discharge Medications Prescriptions: chlordiazePOXIDE [Chlordiazepoxide HCl] 5 mg PO TID 3 Days #9 cap Folic Acid 1 mg PO DAILY 30 Days #30 tab Multimineral/Multivitamin [Therapeutic-M Tab] 1 tab PO 0800 30 Days #30 tab Thiamine [Vitamin B1 Tab] 100 mg PO DAILY 30 Days #30 tab - Follow Up Plan Condition: STABLE Disposition: HOME/ ROUTINE Instructions: Alcohol Withdrawal (DC) Additional Instructions: Take the librium 5 mg three times aday for 5 days, please don't drink while taking this medications. Stop drinking alcohol, Take the vitamins once a day Please follow up with your primary care doctor in 3-5 days. We have provided you with the referral for our clinic in the hospital called [facility]. Please call and make appointment and complete [facility] care paperwork. Please return if the symptoms returns or call 911. Referrals: [facility] [Outside] <Shabbir Harding - Last Filed: 04/24/19 13:24> Provider - Provider Date of Admission: 04/21/19 20:28 Attending physician: Chikis Triana MD [facility] Course - Lab Results Lab Results: Most Recent Lab Values WBC 6.6 10^3/uL (4.5-11.0) 04/23/19 06:30 RBC 5.01 10^6/uL (3.5-6.1) 04/23/19 06:30 Hgb 15.8 g/dL (14.0-18.0) 04/23/19 06:30 Hct 46.3 % (42.0-52.0) 04/23/19 06:30 MCV 92.4 fl (80.0-105.0) 04/23/19 06:30 MCH 31.5 pg (25.0-35.0) 04/23/19 06:30 MCHC 34.1 g/dl (31.0-37.0) 04/23/19 06:30 RDW 12.7 % (11.5-14.5) 04/23/19 06:30 Plt Count 271 10^3/uL (120.0-450.0) 04/23/19 06:30 MPV 10.0 fl (7.0-11.0) 04/23/19 06:30 Neut % (Auto) 72.3 % (50.0-68.0) H 04/21/19 19:10 Lymph % (Auto) 20.6 % (22.0-35.0) L 04/21/19 19:10 [place] % (Auto) 6.7 % (1.0-6.0) H 04/21/19 19:10 Eos % (Auto) 0.2 % (1.5-5.0) L 04/21/19 19:10 Baso % (Auto) 0.2 % (0.0-3.0) 04/21/19 19:10 Lymph # (Auto) 2.0 (1.2-3.4) 04/21/19 19:10 [place] # (Auto) 0.6 (0.1-0.6) 04/21/19 19:10 Eos # (Auto) 0.0 (0.0-0.7) 04/21/19 19:10 Baso # (Auto) 0.02 K/mm3 (0.0-2.0) 04/21/19 19:10 Absolute Neuts (auto) 6.95 (1.4-6.5) H 04/21/19 19:10 Sodium 136 mmol/L (132-148) 04/23/19 06:30 Potassium 4.0 mmol/L (3.6-5.0) 04/23/19 06:30 Chloride 102 mmol/L (98-107) 04/23/19 06:30 Carbon Dioxide 26 mmol/L (21-33) 04/23/19 06:30 Anion Gap 12 (10-20) 04/23/19 06:30 BUN 12 mg/dL (7-21) 04/23/19 06:30 Creatinine 0.9 mg/dl (0.8-1.5) 04/23/19 06:30 Est GFR ( Amer) > 60 04/23/19 06:30 Est GFR (Non-Af Amer) > 60 04/23/19 06:30 Random Glucose 93 mg/dL (70-110) 04/23/19 06:30 Calcium 9.2 mg/dL (8.4-10.5) 04/23/19 06:30 Phosphorus 3.9 mg/dL (2.5-4.5) 04/23/19 06:30 Magnesium 2.1 mg/dL (1.7-2.2) 04/23/19 06:30 Total Bilirubin 1.0 mg/dL (0.2-1.3) 04/23/19 06:30 AST 54 U/L (17-59) 04/23/19 06:30 ALT 46 U/L (7-56) 04/23/19 06:30 Alkaline Phosphatase 66 U/L (38-126) 04/23/19 06:30 Total Protein 7.4 g/dL (5.8-8.3) 04/23/19 06:30 Albumin 4.3 g/dL (3.0-4.8) 04/23/19 06:30 Globulin 3.0 gm/dL 04/23/19 06:30 Albumin/Globulin Ratio 1.4 (1.1-1.8) 04/23/19 06:30 Lipase 95 U/L (23-300) 04/21/19 19:10 Urine Color Colorless (YELLOW) 04/21/19 19:41 Urine Appearance Clear (CLEAR) 04/21/19 19:41 Urine pH 7.0 (4.7-8.0) 04/21/19 19:41 Ur Specific [place] <= 1.005 (1.005-1.035) 04/21/19 19:41 Urine Protein Negative mg/dL (<30 mg/dL) 04/21/19 19:41 Urine Glucose (UA) Negative mg/dL (NEGATIVE) 04/21/19 19:41 Urine Ketones Negative mg/dL (NEGATIVE) 04/21/19 19:41 Urine Blood Negative (NEGATIVE) 04/21/19 19:41 Urine Nitrate Negative (NEGATIVE) 04/21/19 19:41 Urine Bilirubin Negative (NEGATIVE) 04/21/19 19:41 Urine Urobilinogen 0.2 E.U./dL (<1 E.U./dL) 04/21/19 19:41 Ur Leukocyte Esterase Negative [place]/uL (NEGATIVE) 04/21/19 19:41 Urine Opiates Screen Negative (NEGATIVE) 04/21/19 19:41 Urine Methadone Screen Negative (NEGATIVE) 04/21/19 19:41 Ur Barbiturates Screen Negative (NEGATIVE) 04/21/19 19:41 Ur Phencyclidine Scrn Negative (NEGATIVE) 04/21/19 19:41 Ur Amphetamines Screen Negative (NEGATIVE) 04/21/19 19:41 U Benzodiazepines Scrn Negative (NEGATIVE) 04/21/19 19:41 U Oth Cocaine Metabols Negative (NEGATIVE) 04/21/19 19:41 U Cannabinoids Screen Negative (NEGATIVE) 04/21/19 19:41 Alcohol, Quantitative 65 mg/dL (0-10) H 04/21/19 19:15 Attending/Attestation - Attestation I have personally seen and examined this patient.: Yes I have fully participated in the care of the patient.: Yes I have reviewed all pertinent clinical information, including history, physical exam and plan: Yes Notes (Text): 04/24/19 13:23 Attending note; Patient seen and examined with resident. Patient is alert and awake. Denies any tremors. Denies any nausea, vomiting. Tolerating diet well. Patient is a 23-year-old male admitted with acute alcohol withdrawal symptoms. Admitted to telemetry and monitor closely. Currently asymptomatic. Treated with multivitamin, thiamine, folic acid and IV Ativan. Patient will be discharged home with p.o. Librium. Complete alcohol cessation is strongly advised. Advised to follow-up with AA meetings and rehab as needed. Advised to follow-up with [facility] clinic.
== END 2019-04-23 13:57 | disposition home or self-care (01) ==
LOC: ED 18:02 → ERH 20:28 → 2RNO 22:23
PROVIDERS: ADMIT Internal Medicine; ATTEND Internal Medicine
DX: F10.239 Alcohol dependence with withdrawal, unspecified (principal); F10.229 Alcohol dependence with intoxication, unspecified; Y90.3 Blood alcohol level of 60-79 mg/100 ml; F17.210 Nicotine dependence, cigarettes, uncomplicated
CPT/HCPCS: 36415; 71045; 80053; 81003; 83690; 83735; 84100; 85025; 85027; 93005; 96361; 96372; 96374; 96375; 96376; 99282; G0378; G0480; J2060; J3411; J7030